=== PATIENT | female | born 1950 | race Caucasian/White ===

== ENCOUNTER 2017-12-10 08:30 | Outpatient (CLI) | payer MEDICARE ==
--- NOTE | 2017-12-10 12:12 | MRI ---
MRI OF THE LEFT FOOT: Date: 12/10/17 PROVIDED CLINICAL HISTORY: Heel pain. FINDINGS: The visualized portions of the medial flexor, anterior extensor, peroneal, and Achilles tendon demons trate an intact MRI appearance. The medial and lateral ankle ligaments appear intact. No regional joint effusion is evident. Alignment appears anatomic. Degenerative changes are seen at t he talonavicular joint. The courses of regional major neurovascular structures appear unremarkable. T here is preservation of normal fat signal intensity of sinus tarsi. Plantar aponeurosis appears venessa l. There is no adjacent soft tissue or marrow signal alteration to suggest edema at the calcaneal att achment of the plantar aponeurosis. There is noncircumscribed fluid signal intensity present within the subcutaneous adipose layer about each malleolus. No focal concerning regional marrow or muscular signal abnormality is evident. IMPRESSION: 1. No evidence for plantar fasciitis. 2. No evidence for internal derangement. POS: [facility]
== END 2017-12-10 08:31 | disposition home or self-care (01) ==
LOC: MRI 08:30
PROVIDERS: ATTEND Podiatrist Foot & Ankle Surgery
DX: M72.2 Plantar fascial fibromatosis (principal); M79.672 Pain in left foot

== ENCOUNTER 2018-02-11 11:10 | Outpatient (CLI) | payer MEDICARE | END 2018-02-11 11:11 | disposition home or self-care (01) | LOC: BICMAMMO 11:10 | PROVIDERS: ATTEND Obstetrics & Gynecology Gynecology | DX: Z12.31 Encounter for screening mammogram for malignant neoplasm of breast (principal) | CPT/HCPCS: 77063; 77067 ==

== ENCOUNTER 2018-11-11 13:17 | Outpatient (CLI) | payer MEDICARE ==
--- NOTE | 2018-11-11 14:08 | BD ---
Exam: DEXA Bone Density History: Post-menopausal. Lumbar Spine: BMD (g/cm2) L1 1.112 T-Score: 1.1 L2 1.207 T-Score: 1.6 L3 1.170 T-Score: 0.8 L4 1.251 T-Score: 1.7 L1-L4 1.187 T-Score: 1.3 Femoral Neck: 0.715 T-Score: -1.2 Total Femur: 1.008 T-Score: 0.5 Impression: 1. Osteopenia of the left femoral neck and normal bone mineral density of the lumbar spine. 2. 10-year fracture risk of major osteoporotic fracture is 8.6% and hip fracture 0.8%. These fracture probabilities are calculated for an untreated patient. POS: T[facility]
== END 2018-11-11 13:18 | disposition home or self-care (01) ==
LOC: BICMAMMO 13:17
PROVIDERS: ATTEND Obstetrics & Gynecology Gynecology
DX: M81.0 Age-related osteoporosis without current pathological fracture (principal); M85.852 Other specified disorders of bone density and structure, left thigh
CPT/HCPCS: 77080

== ENCOUNTER 2019-02-13 14:26 | Outpatient (CLI) | payer MEDICARE ==
--- NOTE | 2019-02-13 15:27 | MMO ---
Bilateral MAMMO Bilat Screen [facility]. CLINICAL HISTORY: Patient is 68 years old and is seen for screening. The patient has the following family history of breast cancer: niece, at age 21. The patient has no personal history of cancer. VIEWS: The views performed were: bilateral craniocaudal with tomosynthesis and bilateral mediolateral oblique with tomosynthesis. FILMS COMPARED: The present examination has been compared to a prior imaging study performed at [facility] on 02/11/2018. MAMMOGRAM FINDINGS: The breasts are heterogeneously dense, which could obscure a lesion on mammography. There are stable benign appearing calcifications seen in both breasts. There are no suspicious masses, suspicious calcifications, or new areas of architectural distortion. IMPRESSION: THERE IS NO MAMMOGRAPHIC EVIDENCE OF MALIGNANCY. A ROUTINE FOLLOW-UP MAMMOGRAM IN 1 YEAR IS RECOMMENDED. THE RESULTS OF THIS EXAM WERE SENT TO THE PATIENT. ACR BI-RADS Category 2 - Benign finding MAMMOGRAPHY NOTE: 1. A negative mammogram report should not delay a biopsy if a dominant of clinically suspicious mass is present. 2. Approximately 10% to 15% of breast cancers are not detected by mammography. 3. Adenosis and dense breasts may obscure an underlying neoplasm.
== END 2019-02-13 14:27 | disposition home or self-care (01) ==
LOC: BICMAMMO 14:26
PROVIDERS: ATTEND Obstetrics & Gynecology Gynecology
DX: Z12.31 Encounter for screening mammogram for malignant neoplasm of breast (principal); Z80.3 Family history of malignant neoplasm of breast
CPT/HCPCS: 77063; 77067

== ENCOUNTER 2020-02-24 14:10 | Outpatient (CLI) | payer MEDICARE ==
--- NOTE | 2020-02-25 08:01 | MMO ---
Bilateral MAMMO Bilat Screen [facility]. CLINICAL HISTORY: Patient is 69 years old and is seen for screening. The patient has the following family history of breast cancer: niece, at age 21. The patient has no personal history of cancer. VIEWS: The views performed were: bilateral craniocaudal with tomosynthesis and bilateral mediolateral oblique with tomosynthesis. FILMS COMPARED: The present examination has been compared to prior imaging studies performed at [facility] on 02/11/2018 and 02/13/2019. This study has been interpreted with the assistance of computer-aided detection. MAMMOGRAM FINDINGS: There are scattered fibroglandular densities. There are stable benign appearing calcifications seen in both breasts. There are also vascular calcifications. Nodularity is stable. There are no suspicious masses, suspicious calcifications, or new areas of architectural distortion. IMPRESSION: THERE IS NO MAMMOGRAPHIC EVIDENCE OF MALIGNANCY. A ROUTINE FOLLOW-UP MAMMOGRAM IN 1 YEAR IS RECOMMENDED. THE RESULTS OF THIS EXAM WERE SENT TO THE PATIENT. ACR BI-RADS Category 2 - Benign finding MAMMOGRAPHY NOTE: 1. A negative mammogram report should not delay a biopsy if a dominant of clinically suspicious mass is present. 2. Approximately 10% to 15% of breast cancers are not detected by mammography. 3. Adenosis and dense breasts may obscure an underlying neoplasm. Reported by: CLAUDE AKINS MD Electonically Signed: [id number]
== END 2020-02-24 14:11 | disposition home or self-care (01) ==
LOC: BICMAMMO 14:10
PROVIDERS: ATTEND Obstetrics & Gynecology Gynecology
DX: Z12.31 Encounter for screening mammogram for malignant neoplasm of breast (principal); Z80.3 Family history of malignant neoplasm of breast
CPT/HCPCS: 77063; 77067

== ENCOUNTER 2021-02-25 15:33 | Outpatient (CLI) | payer MEDICARE | END 2021-02-25 15:34 | disposition home or self-care (01) | LOC: BICMAMMO 15:33 | PROVIDERS: ATTEND Obstetrics & Gynecology Gynecology | DX: Z12.31 Encounter for screening mammogram for malignant neoplasm of breast (principal); Z80.3 Family history of malignant neoplasm of breast | CPT/HCPCS: 77063; 77067 ==

== ENCOUNTER 2022-02-27 13:35 | Outpatient (CLI) | payer MEDICARE | END 2022-02-27 13:36 | disposition home or self-care (01) | LOC: BICMAMMO 13:35 | PROVIDERS: ATTEND Obstetrics & Gynecology Gynecology | DX: Z12.31 Encounter for screening mammogram for malignant neoplasm of breast (principal); Z80.3 Family history of malignant neoplasm of breast | CPT/HCPCS: 77063; 77067 ==